=== PATIENT | male | born 1965 | race Caucasian/White ===

== ENCOUNTER 2017-05-25 14:03 | Emergency (ER) | payer MEDICARE ==
[~2017-05-25] VITALS: Ht 180.3 cm; Wt 92.0 kg
[2017-05-25 18:39] VITALS: BP 158/98
[2017-05-25] MEDS ORDERED: IBUPROFEN 600MG TABLET PO ONE (18:45)
== END 2017-05-25 18:41 | disposition home or self-care (01) ==
LOC: ER 15:15
DX: S80.01XA Contusion of right knee, initial encounter (principal); S00.11XA Contusion of right eyelid and periocular area, initial encounter; V49.60XA Unspecified car occupant injured in collision with unspecified motor vehicles in traffic accident, initial encounter; Y93.89 Activity, other specified; Y99.8 Other external cause status; Y92.410 Unspecified street and highway as the place of occurrence of the external cause
CPT/HCPCS: 99283

== ENCOUNTER 2022-04-07 21:36 | Emergency (ER) | payer MEDICARE, OTHER ==
[~2022-04-07] VITALS: Ht 177.8 cm; Wt 86.0 kg
[2022-04-07 22:03] VITALS: BP 150/98
== END 2022-04-07 22:18 | disposition left against medical advice (07) ==
LOC: ER 21:36
DX: Z53.21 Procedure and treatment not carried out due to patient leaving prior to being seen by health care provider (principal); Z96.659 Presence of unspecified artificial knee joint